=== PATIENT | female | born 1985 | race Two or more races ===

== ENCOUNTER 2017-01-05 02:01 | Emergency (ER) | payer SELFPAY ==
[~2017-01-05] VITALS: Ht 162.6 cm; Wt 73.0 kg
[~2017-01-05 02:01] MED LIST: TRAM50TA PO
[2017-01-05 02:40] LABS: BASO # 0.1 x10^3/uL (0.0-0.2); BASO % 1 % (0-3); EOS % 3 % (0-3); HEMATOCRIT 39.5 % (36.0-47.0); HEMOGLOBIN 13.1 g/dL (12.0-15.5); LYMPH # 3.3 x10^3/uL (1.0-4.8); LYMPH % 27 % (24-48); MEAN CORPUSCULAR HEMOGLOBIN 31 pg (25-35); MEAN CORPUSCULAR HGB CONC 33 g/dL (31-37); MEAN CORPUSCULAR VOLUME 94 fL (79-100); MONO % 8 % (0-9); NEUT % 62 % (31-73); PLATELET COUNT 291 x10^3/uL (140-400); RED BLOOD COUNT 4.21 x10^6/uL (3.50-5.40); WHITE BLOOD COUNT 12.5 x10^3/uL (4.0-11.0)
[2017-01-05 03:35] LABS: % EOS 5 % (0-5); PLT ESTIMATE ADEQUATE (ADEQUATE)
[2017-01-05 05:00] VITALS: BP 126/72
[2017-01-05 05:08] LABS: BILIRUBIN,URINE NEGATIVE (NEG); GLUCOSE,URINE NEGATIVE (NEG); NITRITE,URINE NEGATIVE (NEG); PROTEIN,URINE NEGATIVE (NEG-TRACE); UROBILINOGEN,URINE 0.2 mg/dL (0.2 mg/dL)
[2017-01-05 05:13] LABS: BACTERIA,URINE 0 /HPF (0-FEW); RBC,URINE OCC /HPF (0-2); SQUAMOUS EPITHELIAL CELL,UR FEW /LPF; WBC,URINE OCC /HPF (0-4)
--- NOTE | 2017-01-05 05:17 | RAD ---
OB ultrasound less than 14 weeks to include transabdominal and transvaginal imaging 01/05/2017 CLINICAL HISTORY: First trimester with pelvic pain and spotting. TECHNIQUE: Using the distended urinary bladder as a sonographic window, a real-time ultrasound examination of the pelvis was performed. Additionally in an attempt to better evaluate the uterus and adnexa, a transvaginal ultrasound study was performed. Multiple images were obtained. FINDINGS: A gestational sac is seen within the endometrial canal within the fundus of the uterus. Within this gestational sac a small yolk sac is seen. No embryonic pole is seen at this time to confirm a living IUP. The mean sac diameter is 5.8 mm. This corresponds to an estimated gestational age by ultrasound of 5 weeks 2 days plus or minus a standard deviation of 5 days. The uterus is otherwise within normal limits. The right ovary is normal in size measuring 5.4 x 3.4 x 3.2 cm in size. Within the right ovary a 2.7 cm rounded anechoic structure is seen consistent with a corpus luteum. The left ovary is normal in size and echogenicity. It measures 2.8 x 1.8 x 2.3 cm in size. No free fluid is noted. IMPRESSION: Findings are seen consistent most likely with a very early IUP as outlined above. Electronically signed by: Korey Nuñez MD (01/05/2017 5:14 AM) [facility] [place] [facility]
[2017-01-05] MEDS ORDERED: ACETAMINOPHEN 500 MG TABLET PO ONE (05:30)
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
== END 2017-01-05 05:31 | disposition home or self-care (01) ==
LOC: ER 02:01
DX: O26.891 Other specified pregnancy related conditions, first trimester (principal); R10.30 Lower abdominal pain, unspecified; M54.5 Low back pain; M54.2 Cervicalgia; V49.9XXA Car occupant (driver) (passenger) injured in unspecified traffic accident, initial encounter; Y93.89 Activity, other specified; Y92.89 Other specified places as the place of occurrence of the external cause; Y99.8 Other external cause status
CPT/HCPCS: 36415; 76801; 76817; 81001; 81025; 84702; 85007; 85027; 86900; 86901; 99285-25

== ENCOUNTER 2017-06-19 11:49 | Observation (INO) | payer OTHER ==
[~2017-06-19] VITALS: Ht 162.6 cm; Wt 98.9 kg
[2017-06-19] MEDS ORDERED: IV NORMAL SALINE 1000ML BAG 1,000 ML IV SCH (12:00)
[2017-06-19] MEDS ORDERED: 0.9 % SODIUM CHLORIDE 10 ML DISP.SYRIN. IV PRN (12:00)
[2017-06-19] MEDS ORDERED: ACETAMINOPHEN 500 MG TABLET PO ONE (12:15)
[2017-06-19] MEDS ORDERED: ACET325T9 PO (12:17)
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
[2017-06-19 12:19] LABS: BILIRUBIN,URINE NEGATIVE (NEG); GLUCOSE,URINE NEGATIVE (NEG); NITRITE,URINE NEGATIVE (NEG); PROTEIN,URINE NEGATIVE (NEG-TRACE); UROBILINOGEN,URINE 0.2 mg/dL (0.2 mg/dL)
[2017-06-19 12:22] LABS: BASO % 0 % (0-3); EOS % 3 % (0-3); HEMATOCRIT 36.6 % (36.0-47.0); HEMOGLOBIN 12.2 g/dL (12.0-15.5); LYMPH # 2.1 x10^3/uL (1.0-4.8); LYMPH % 16 % (24-48); MEAN CORPUSCULAR HEMOGLOBIN 32 pg (25-35); MEAN CORPUSCULAR HGB CONC 33 g/dL (31-37); MEAN CORPUSCULAR VOLUME 95 fL (79-100); MONO % 6 % (0-9); NEUT % 75 % (31-73); PLATELET COUNT 343 x10^3/uL (140-400); RED BLOOD COUNT 3.84 x10^6/uL (3.50-5.40); RED CELL DISTRIBUTION WIDTH 13.6 % (11.5-14.5); WHITE BLOOD COUNT 13.1 x10^3/uL (4.0-11.0)
[2017-06-19 12:27] VITALS: BP 142/74
[2017-06-19 12:30] LABS: BACTERIA,URINE MANY /HPF (0-FEW); RBC,URINE RARE /HPF (0-2); SQUAMOUS EPITHELIAL CELL,UR MANY /LPF
[2017-06-19 12:42] LABS: CREATININE 0.5 mg/dL (0.6-1.0); POTASSIUM 3.5 mmol/L (3.5-5.1)
[2017-06-19 12:47] LABS: DIRECT BILIRUBIN 0.1 mg/dL (0.0-0.2); TOTAL BILIRUBIN 0.3 mg/dL (0.2-1.0); TOTAL PROTEIN 7.6 g/dL (6.4-8.2)
[2017-06-19 15:09] LABS: % EOS 3 % (0-5); PLT ESTIMATE ADEQUATE (ADEQUATE)
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
== END 2017-06-19 16:40 | disposition home or self-care (01) ==
LOC: ER 11:49 → 3 SO LND 12:35
PROVIDERS: ADMIT Obstetrics & Gynecology; ATTEND Obstetrics & Gynecology
DX: O26.893 Other specified pregnancy related conditions, third trimester (principal); V49.9XXA Car occupant (driver) (passenger) injured in unspecified traffic accident, initial encounter; Y93.89 Activity, other specified; Y92.89 Other specified places as the place of occurrence of the external cause; Y99.8 Other external cause status; Z3A.28 28 weeks gestation of pregnancy
CPT/HCPCS: 36415; 76805; 80048; 80076; 81001; 85007; 85025; 87086; 96360; 99285; G0378; G0379; J7030

== ENCOUNTER 2018-01-18 07:49 | Emergency (ER) | payer OTHER ==
[2018-01-18 08:09] LABS: URINE HCG POC HCG POSITIVE (Negative)
[2018-01-18 08:18] LABS: BILIRUBIN,URINE NEGATIVE (NEG); CLARITY,URINE CLEAR; COLOR,URINE YELLOW; GLUCOSE,URINE NEGATIVE (NEG); NITRITE,URINE NEGATIVE (NEG); PROTEIN,URINE NEGATIVE (NEG-TRACE)
[2018-01-18 08:25] LABS: BACTERIA,URINE FEW /HPF (0-FEW); SQUAMOUS EPITHELIAL CELL,UR FEW /LPF
[2018-01-18 08:41] LABS: ADD MAN DIFF? NO
[2018-01-18 08:44] LABS: BASO % 1 % (0-3); EOS # 0.6 x10^3/uL (0.0-0.7); EOS % 6 % (0-3); HEMATOCRIT 37.2 % (36.0-47.0); HEMOGLOBIN 12.7 g/dL (12.0-15.5); LYMPH # 2.2 x10^3/uL (1.0-4.8); LYMPH % 22 % (24-48); MEAN CORPUSCULAR HEMOGLOBIN 32 pg (25-35); MEAN CORPUSCULAR HGB CONC 34 g/dL (31-37); MEAN CORPUSCULAR VOLUME 94 fL (79-100); MONO # 0.5 x10^3/uL (0.0-1.1); MONO % 6 % (0-9); NEUT # 6.4 x10^3uL (1.8-7.7); NEUT % 66 % (31-73); PLATELET COUNT 347 x10^3/uL (140-400); RED BLOOD COUNT 3.98 x10^6/uL (3.50-5.40); RED CELL DISTRIBUTION WIDTH 12.7 % (11.5-14.5); WHITE BLOOD COUNT 9.8 x10^3/uL (4.0-11.0)
[2018-01-18 08:56] LABS: ANION GAP 11 (6-14); BLOOD UREA NITROGEN 11 mg/dL (7-20); BUN/CREATININE RATIO 16 (6-20); CALCIUM 8.8 mg/dL (8.5-10.1); CARBON DIOXIDE 24 mmol/L (21-32); CHLORIDE 102 mmol/L (98-107); CREATININE 0.7 mg/dL (0.6-1.0); GLUCOSE 96 mg/dL (70-99); POTASSIUM 3.8 mmol/L (3.5-5.1); SODIUM 137 mmol/L (136-145)
[2018-01-18 09:01] LABS: ALBUMIN 3.9 g/dL (3.4-5.0); ALK PHOS 97 U/L (46-116); ALT (SGPT) 19 U/L (14-59); AST (SGOT) 14 U/L (15-37); MAGNESIUM 1.8 mg/dL (1.8-2.4); TOTAL BILIRUBIN 0.5 mg/dL (0.2-1.0); TOTAL PROTEIN 7.8 g/dL (6.4-8.2)
[2018-01-21 15:29] LABS: CHLAMYDIA PROBE Negative (Negative); GC PROBE Negative (Negative)
== END 2018-01-18 10:55 | disposition home or self-care (01) ==
LOC: ER 07:49
DX: O20.0 Threatened abortion (principal); Z3A.13 13 weeks gestation of pregnancy
CPT/HCPCS: 36415; 76801; 76817; 80053; 81001; 81025; 83735; 84702; 85025; 86900; 86901; 87086; 87491; 87591; 99285-25; Q0111

== ENCOUNTER 2018-01-19 16:53 | Emergency (ER) | payer OTHER ==
[2018-01-19] MEDS: HYDROcodone/APAP 5/325MG 1 TAB TABLET PO (19:50)
== END 2018-01-19 20:23 | disposition home or self-care (01) ==
LOC: ER 20:23
DX: O20.0 Threatened abortion (principal); Z3A.01 Less than 8 weeks gestation of pregnancy
CPT/HCPCS: 36415; 76801; 76817; 84702; 99285-25

== ENCOUNTER 2019-02-12 12:12 | Observation (INO) | payer OTHER, MEDICAID ==
[2018-01-19 16:57] VITALS: BP 142/78
[~2019-02-12 12:12] MED LIST changes: +ACET325T9 PO; +HYDR-3164 PO
[2019-02-12] MEDS ORDERED: IV RINGERS,LACTATED 1000ML 1,000 ML IV SCH (12:50)
[2019-02-12 13:03] LABS: BILIRUBIN,URINE NEGATIVE (NEG); CLARITY,URINE CLEAR; COLOR,URINE YELLOW; NITRITE,URINE NEGATIVE (NEG); PROTEIN,URINE NEGATIVE (NEG-TRACE)
[2019-02-12 13:07] LABS: BARBITURATES NEG (NEG); BENZODIAZEPINES NEG (NEG); CANNABINOIDS NEG (NEG); COCAINE NEG (NEG); METHADONE NEG (NEG); OPIATES NEG (NEG); PHENCYCLIDINE NEG (NEG)
[2019-02-12 13:09] LABS: AMPHETAMINE/METHAMPHETAMINE NEG (NEG); SQUAMOUS EPITHELIAL CELL,UR MANY /LPF
[2019-02-12 13:10] LABS: BACTERIA,URINE MODERATE /HPF (0-FEW); RBC,URINE 0 /HPF (0-2)
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
== END 2019-02-12 14:55 | disposition home or self-care (01) ==
LOC: 3 SO LND 12:12
PROVIDERS: ADMIT Obstetrics & Gynecology; ATTEND Obstetrics & Gynecology
DX: O26.892 Other specified pregnancy related conditions, second trimester (principal); R10.30 Lower abdominal pain, unspecified; Z3A.23 23 weeks gestation of pregnancy
CPT/HCPCS: 76805; 80307; 81001; 87086; G0378; G0379

== ENCOUNTER 2020-12-24 05:04 | Emergency (ER) | payer MEDICAID, OTHER ==
[~2020-12-24] VITALS: Ht 162.6 cm; Wt 100.0 kg
[2020-12-24] MEDS ORDERED: LABETALOL 20 MG/4 ML DISP.SYRIN. IVP ONE ×2 (06:15→07:30)
[2020-12-24] MEDS ORDERED: IV NORMAL SALINE 1000ML BAG 1,000 ML IV ONE (06:15)
[2020-12-24 06:30] LABS: BILIRUBIN,URINE NEGATIVE (NEG); CLARITY,URINE CLEAR; COLOR,URINE YELLOW; NITRITE,URINE NEGATIVE (NEG); PH,URINE 6.5 (<5.0-8.0); PROTEIN,URINE 30 mg/dL (NEG-TRACE)
[2020-12-24 06:32] LABS: CALCIUM 8.9 mg/dL (8.5-10.1); CREATININE 0.7 mg/dL (0.6-1.0); GFR 95.2; POTASSIUM 3.6 mmol/L (3.5-5.1)
[2020-12-24 06:37] LABS: ALBUMIN 3.3 g/dL (3.4-5.0); ALBUMIN/GLOBULIN RATIO 0.8 (1.0-1.7); TOTAL BILIRUBIN 0.6 mg/dL (0.2-1.0); TOTAL PROTEIN 7.5 g/dL (6.4-8.2)
[2020-12-24 06:42] LABS: BASO % 0 % (0-3); EOS # 0.1 x10^3/uL (0.0-0.7); EOS % 1 % (0-3); HEMATOCRIT 39.5 % (36.0-47.0); HEMOGLOBIN 13.1 g/dL (12.0-15.5); LYMPH # 1.8 x10^3/uL (1.0-4.8); LYMPH % 18 % (24-48); MEAN CORPUSCULAR HEMOGLOBIN 31 pg (25-35); MEAN CORPUSCULAR HGB CONC 33 g/dL (31-37); MEAN CORPUSCULAR VOLUME 93 fL (79-100); MONO # 0.4 x10^3/uL (0.0-1.1); MONO % 5 % (0-9); NEUT # 7.3 x10^3/uL (1.8-7.7); NEUT % 76 % (31-73); PLATELET COUNT 363 x10^3/uL (140-400); RED BLOOD COUNT 4.26 x10^6/uL (3.50-5.40); RED CELL DISTRIBUTION WIDTH 14.6 % (11.5-14.5); WHITE BLOOD COUNT 9.7 x10^3/uL (4.0-11.0)
[2020-12-24] MEDS ORDERED: IOHEXOL 300 MG/ML 100ML VIAL. IV ONE (06:45)
[2020-12-24] MEDS ORDERED: CONTRAST GIVEN. MC PRN (06:45)
[2020-12-24 06:49] LABS: BACTERIA,URINE FEW /HPF (0-FEW); WBC,URINE OCC /HPF (0-4)
--- NOTE | 2020-12-24 06:52 | PHYS DOC ---
Past Medical History Past Medical History: No Pertinent History Past Surgical History: Other Additional Past Surgical Histo: breast augmentation Smoking Status: Former Smoker Alcohol Use: None Drug Use: None General Adult EDM: Chief Complaint: MULTIPLE COMPLAINTS HPI: HPI: Pt was seen and orders were placed by overnight doctor RAFFI HAAS DO. I came on shift at 6AM. 35-year-old female presenting the emergency department today with a abdominal pain nausea. She reports feeling a bubbling sensation in her abdomen and chest. This all started around 4:00 this morning. She felt lightheaded short of breath and had an episode where she felt like she could not move her body and felt tingling in her hands. She reports falling at that time but did not pass o ut. Since then she is much improved and feeling much better. She was treated for hypertension in which started around 16 weeks of . She gave 1 week ago by vaginal delivery at [facility]. Review of systems is negative for vomiting diaphoresis fevers chills. All other review of systems negative. Heart Score: C/O Chest Pain: No Risk Factors: Risk Factors: DM, Current or recent (<one month) smoker, HTN, HLP, family history of CAD, obesity. Risk Scores: Score 0 - 3: 2.5% MACE over next 6 weeks - Discharge Home Score 4 - 6: 20.3% MACE over next 6 weeks - Admit for Clinical Observation Score 7 - 10: 72.7% MACE over next 6 weeks - Early Invasive Strategies Current Medications: Current Medications Medications (Trade) Dose Ordered Sig/Chato Start Time Stop Time Status Last Admin Dose Admin Labetalol HCl (Normodyne Iv Push) 10 mg 1X ONCE 12/24/20 06:15 12/24/20 06:16 DC 12/24/20 06:23 10 MG Sodium Chloride 1,000 ml @ 1,000 mls/hr 1X ONCE 12/24/20 06:15 12/24/20 07:14 12/24/20 06:23 1,000 MLS/HR Allergies: Allergies: Allergies Coded Allergies Type Severity Reaction Last Updated Verified No Known Drug Allergies 04/25/16 No Physical Exam: PE: Constitutional: Well developed, well nourished, no acute distress, non-toxic appearance. [] HENT: Normocephalic, atraumatic, bilateral external ears normal, oropharynx moist, no oral exudates, nose normal. [] No nuchal rigidity. Eyes: PERRLA, EOMI, conjunctiva normal, no discharge. [] Neck: Normal range of motion, no tenderness, supple, no stridor. [] Cardiovascular:Heart rate regular rhythm, no murmur [] Lungs & Thorax: Bilateral breath sounds clear to auscultation [] Abdomen: Bowel sounds normal, soft, no tenderness, no masses, no pulsatile masses. No rebound tenderness or guarding. Skin: Warm, dry, no erythema, no rash. [] Back: No tenderness, no CVA tenderness. [] Extremities: No tenderness, no cyanosis, no clubbing, ROM intact, no edema. [] Neurologic: Alert and oriented X 3, normal motor function, normal sensory function, no focal deficits noted. [] Psychologic: Affect normal, judgement normal, mood normal. [] Current Patient Data: Labs: Laboratory Tests Test 12/24/20 06:07 12/24/20 06:11 Sodium Level 143 mmol/L (136-145) Potassium Level 3.6 mmol/L (3.5-5.1) Chloride Level 104 mmol/L (98-107) Carbon Dioxide Level 24 mmol/L (21-32) Anion Gap 15 (6-14) H Blood Urea Nitrogen 11 mg/dL (7-20) Creatinine 0.7 mg/dL (0.6-1.0) Estimated GFR (Cockcroft-Gault) 95.2 BUN/Creatinine Ratio 16 (6-20) Glucose Level 104 mg/dL (70-99) H Calcium Level 8.9 mg/dL (8.5-10.1) Total Bilirubin 0.6 mg/dL (0.2-1.0) Aspartate Amino Transferase (AST) 35 U/L (15-37) Alanine Aminotransferase (ALT) 61 U/L (14-59) H Alkaline Phosphatase 120 U/L (46-116) H Total Protein 7.5 g/dL (6.4-8.2) Albumin 3.3 g/dL (3.4-5.0) L Albumin/Globulin Ratio 0.8 (1.0-1.7) L POC Urine HCG, Qualitative Borderline hcg level Laboratory Tests 12/24/20 06:07 Vital Signs: Vital Signs Date Time Temp Pulse Resp B/P (MAP) Pulse Ox O2 Delivery O2 Flow Rate FiO2 12/24/20 06:23 70 181/115 EKG: EKG: [] EKG shows sinus rhythm with a regular rate. ST segments congruent. Not suggestive of acute ischemia. Radiology/Procedures: Radiology/Procedures: [] Course & Med Decision Making: Course & Med Decision Making Pertinent Labs and Imaging studies reviewed. (See chart for details) 35-year-old female who presents with chest and abdominal pain with tingling in her hands and an episode of time where she reports not being able to move her body. On arrival EKG was performed. On arrival the patient is hypertensive at 183/123. Patient was given IV labetalol and IV hydralazine. Improvement in diastolic blood pressure. Systolic pressure remains elevated. EKG initially reviewed by oncoming doctor at 536 and then I reviewed at around 6:52 AM. EKG shows a sinus rhythm with a regular rate. ST segments are congruent. Not suggestive of acute ischemia. IV established and blood work sent. Head CT performed which was unremarkable. CBC unremarkable. Chemistry panel shows a minimal elevation in ALT and alk phos. Troponin of 1.56. Urine analysis shows 30 protein. Positive for blood. Leuk esterase trace. Few bacteria. CT angiog marissa shows no aortic aneurysm dissection or pulmonary embolism. There is a multifocal tree-in-bud nodular opacity concerning for infectious process. IV antibiotics ordered. I paged Dr. Orozco the patient's OB at [facility] at [phone]. Dr. Betancourt called us back at [phone]. I reviewed the case with her. She accepts the patient for transfer for admission to [facility]. I also spoke with Dr. Cerda about the patient. He agrees with care. Time is now 11:39 AM. We have an accepting doctor however we are not successfully able to find transportation at this time. We have called and are working on getting transport. Transport was able to be obtained and the patient was transported to [facility] for further treatment and care. [place] Disclaimer: Dragon Disclaimer: This electronic medical record was generated, in whole or in part, using a voice recognition dictation system. Departure Departure Impression: Primary Impression: Elevated troponin Additional Impressions: Abdominal pain Chest pain hypertension Disposition: 02 SHORT TERM HOSPITAL Condition: GUARDED Referrals: NEIL KOCH MD (PCP) GEORGE TEJEDA MD Dec 24, 2020 06:52
--- NOTE | 2020-12-24 07:07 | RAD ---
EXAMINATION: CT head without IV contrast INDICATION:35 years, Female, weakness and numbness. COMPARISON: None TECHNIQUE: Spiral acquisition of contiguous images from the skull base to the vertex were obtained. S agittal and coronal 2D reformatted series were provided by the technologist. Soft tissue and bone win sushil algorithms were reviewed. Exposure: One or more of the following individualized dose reduction techniques were utilized for thi s examination: 1. Automated exposure control 2. Adjustment of the mA and/or kV according to patient size 3. Use of iterative reconstruction technique. FINDINGS: Neither mass, midline shift, intracranial hemorrhage, acute/subacute ischemic changes, nor extraaxial fluid collections are seen. The brain parenchyma is normal in appearance. The ventricles are normal in size. Left worst than right, mucosal thickening in the ethmoid air cells. The remaining visualized paranasa l sinuses, mastoid air cells, and middle ears are clear. The orbital contents appear within normal limits. IMPRESSION: No evidence of acute intracranial abnormality. Electronically signed by: Komal Lares MD (12/24/2020 7:04 AM) [facility]
[2020-12-24] MEDS ORDERED: IOHEXOL 350 MG/ML 100 ML VIAL. IV ONE (07:15)
--- NOTE | 2020-12-24 07:53 | RAD ---
CTA CHEST History: Reason: SYNCOPE, HIGH TROPONIN r/o PE / Spl. Instructions: OMNI 350 INJ. 100 MLS / History: Comparison: None. Technique: CTA of the pulmonary arteries with intravenous contrast. Sagittal and coronal 3-D maximum intensity projection reformats were provided. . No exercise-induced stool in the Findings: Pulmonary arteries: No pulmonary embolism. Aorta and great vessels: No aneurysm of the aortic arch or thoracic aorta is seen. Thyroid: No significant abnormalities. Mediastinum and vangie: No mediastinal masses or adenopathy is seen. Prominent right anterior mediastin al fat pad versus lipoma measuring approximately 7.5 x 5.3 cm. Esophagus: The visualized esophagus is normal. Heart: The heart is normal in size. There is no pericardial effusion. Airways: The visualized tracheobronchial tree is normal. Lungs: Left upper lobe tree-in-bud nodular opacities to lesser extent involving the right upper lobe and left lower lobe. A more discrete nodules present near the left apex measuring 6 mm short axis (ax ial image 25). Pleural space: There is no pneumothorax or pleural effusion. Upper abdomen: Limited evaluation of the upper abdomen is unremarkable. Osseous structures and soft tissues: Bilateral breast implants. No acute osseous abnormality. Impression: 1. No aortic aneurysm, aortic dissection or pulmonary embolism. 2. Multifocal tree-in-bud nodular opacities most prominent in the left upper lobe concerning for inf ectious process. Recommend repeat CT in 3 months following appropriate course of treatment to evaluat e for resolution. ------ Exposure: One or more of the following individualized dose reduction techniques were utilized for thi s examination: 1. Automated exposure control 2. Adjustment of the mA and/or kV according to patient size 3. Use of iterative reconstruction technique. Electronically signed by: Hilario Latif MD (12/24/2020 7:51 AM) [id number]
[2020-12-24] MEDS ORDERED: hydrALAZINE 20 MG/ML VIAL. IVP ONE ×3 (08:15→09:45)
[2020-12-24] MEDS: MORPHINE SULFATE 2 MG/ML VIAL. IV PRN ×2 (08:18→10:58)
[2020-12-24] MEDS ORDERED: cefTRIAXone IV Push 1 GM VIAL. IVP ONE (08:30)
[2020-12-24] MEDS ORDERED: AZITHRMYCN 500MG IVPB FOR OMNI 250 ML IV ONE (08:30)
[2020-12-24] MEDS ORDERED: ONDANSETRON PF 4 MG/2 ML VIAL. ONE (10:05)
[2020-12-24] MEDS ORDERED: ONDANSETRON PF 4 MG/2 ML VIAL. IVP ONE (10:15)
[2020-12-24 11:50] VITALS: BP 186/102
--- NOTE | 2020-12-24 16:50 | EKG ---
[facility] [address] [place] [address] Test Date: 2020-12-24 Test Time: 05:33:22 Pat Name: JOHNSON CHRISTIE Department: Room: Gender: F Second Worker: : 1985 Requested By: ALDEN BAILEY Order Number: [id number] Reading MD: Measurements Intervals [place] Rate: 77 P: 28 SD: 152 QRS: 64 QRSD: 90 T: 47 QT: 346 QTc: 393 Interpretive Statements SINUS RHYTHM NO SPECIFIC ECG ABNORMALITIES RI6.01 No previous ECG available for comparison
== END 2020-12-24 12:06 | disposition short-term general hospital (02) ==
LOC: ER 05:04
DX: O16.5 Unspecified maternal hypertension, complicating the puerperium (principal); R77.8 Other specified abnormalities of plasma proteins; R10.9 Unspecified abdominal pain; R07.9 Chest pain, unspecified; Z98.890 Other specified postprocedural states
CPT/HCPCS: 36415; 70450; 71275; 80053; 81001; 81025; 83880; 84484; 85025; 87086; 93005; 96361; 96365; 96366; 96375; 96376; 99285; J0360; J0456; J0696; J2270; J2405; J3490; J7030; Q9967

== ENCOUNTER 2021-07-17 11:39 | Emergency (ER) | payer MEDICAID ==
[~2021-07-17] VITALS: Ht 162.6 cm; Wt 88.8 kg
[2021-07-17 11:40] VITALS: BP 145/85
--- NOTE | 2021-07-17 11:55 | ED.ADGEN ---
Past Medical History Past Medical History: Hypertension, Other Additional Past Medical Histor: INDUCED HYPERTENSION Past Surgical History: Other Additional Past Surgical Histo: breast augmentation Smoking Status: Former Smoker Alcohol Use: None Drug Use: None General Adult EDM: Chief Complaint: KNEE INJURY HPI: HPI: Patient is a 36 year old female coming in for left knee pain and swelling. Patient states that 2 days ago she was dancing when she felt like her knee "slid on the bones". Did not feel a pop. Patient able to ambulate with pain. No injury proximal or distal. Review of Systems: Review of Systems: All other systems within normal limits except for as noted in the HPI Allergies: Allergies: Allergies Coded Allergies Type Severity Reaction Last Updated Verified No Known Drug Allergies 07/17/21 No Physical Exam: PE: Constitutional: Well developed, well nourished, no acute distress, non-toxic appearance. [] HENT: Normocephalic, atraumatic, bilateral external ears normal, nose normal. [] Eyes: PERRLA, conjunctiva normal, no discharge. [] Neck: No rigidity, supple, no stridor. [] Cardiovascular: Regular rate and rhythm, brisk cap refill [] Lungs & Thorax: Non labored symmetric respirations, no tachypnea or respiratory distress [] Abdomen: Soft, nondistended. Skin: Warm, dry, no erythema, no rash. [] Back: Unremarkable Extremities: No deformities, range of motion grossly intact, no lower extremity edema. Left knee exam: Joint effusion, tenderness over medial aspect, patient able to flex and extend knee but range of motion limited due to pain and swelling. Neurologic: Alert and oriented X 3, no focal deficits noted. [] Psychologic: Affect normal, judgement normal, mood normal. [] Current Patient Data: Vital Signs: Vital Signs Date Time Temp Pulse Resp B/P (MAP) Pulse Ox O2 Delivery O2 Flow Rate FiO2 07/17/21 11:40 98.1 93 16 145/85 (105) 100 Room Air 98.1 EKG: EKG: [] Heart Score: C/O Chest Pain: No Risk Factors: Risk Factors: DM, Current or recent (<one month) smoker, HTN, HLP, family history of CAD, obesity. Risk Scores: Score 0 - 3: 2.5% MACE over next 6 weeks - Discharge Home Score 4 - 6: 20.3% MACE over next 6 weeks - Admit for Clinical Observation Score 7 - 10: 72.7% MACE over next 6 weeks - Early Invasive Strategies Radiology/Procedures: Radiology/Procedures: [facility] [address] [place] [address] IMAGING REPORT Signed PATIENT: ANTONIO MARTINEZ BACCOUNT: [id number] : 09/17/1938 LOCATION: ER AGE: 82 SEX: M EXAM STATUS: REG ER ORD. PHYSICIAN: MALINDA LARES MD REASON: constipation PROCEDURE: KUB PROCEDURE: AP abdomen 07/17/2021 11:46 AM. REASON FOR STUDY: Reason: constipation / Spl. Instructions: / History: . COMPARISON: None. FINDINGS: Gas is seen in a mixture of large and small bowel. There is no evidence of obstruction. No abnormal masses or gas collections are shown. A large amount of stools present in the colon. 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 There is a vena cava filter to the right of the lumbar spine.. IMPRESSION: No evidence of obstruction. Large amount of colonic stool.. Electronically signed by: Liset Roberson Jr., MD (07/17/2021 11:47 AM) [facility] DICTATED and SIGNED BY: LISET ROBERSON Jr, MD DATE: 07/17/21 [id number] [] Course & Med Decision Making: Course & Med Decision Making Pertinent Labs and Imaging studies reviewed. (See chart for details) [] Dragon Disclaimer: Leana Disclaimer: This electronic medical record was generated, in whole or in part, using a voice recognition dictation system. Departure Departure Impression: Primary Impression: Left knee injury Disposition: HOME / SELF CARE / HOMELESS Condition: STABLE Referrals: HALLIE HEATON Jr. DO Patient Instructions: RICE - Routine Care for Injuries Additional Instructions: Continue using the hinged knee brace until cleared by orthopedics. MALINDA LARES MD Jul 17, 2021 11:55
--- NOTE | 2021-07-17 12:12 | RAD ---
Exam Date: 07/17/2021 11:54 AM XR KNEE _3 VIEWS_LT Indication: Reason: pain, swelling / Spl. Instructions: / History: . FINDINGS/ IMPRESSION: No acute fracture or dislocation. Alignment and joint spaces are maintained. There is a joint effus ion. Electronically signed by: Edward Zuñiga MD (07/17/2021 12:09 PM) [facility]
== END 2021-07-17 12:50 | disposition home or self-care (01) ==
LOC: ER 11:39
DX: S89.92XA Unspecified injury of left lower leg, initial encounter (principal); X58.XXXA Exposure to other specified factors, initial encounter; Y93.41 Activity, dancing; Y92.89 Other specified places as the place of occurrence of the external cause; Y99.8 Other external cause status
CPT/HCPCS: 73562; 99283

== ENCOUNTER → 2021-08-04 | Outpatient (CLI) | payer MEDICAID ==
[2021-07-17 11:40] VITALS: BP 145/85
--- NOTE | 2021-08-04 09:30 | KCIC ---
MRI STUDY OF THE LEFT KNEE WITHOUT CONTRAST Clinical indications: Left knee injury 1 month ago. [place] a sharp pain in left knee during dancing. Pa in is located medially and posteriorly. TECHNIQUE: Noncontrast MRI sequences of the left knee were performed in all 3 planes. FINDINGS: The posterior cruciate ligament is intact. The anterior cruciate ligament is torn at the fe moral insertion. There is associated pivot shift bone marrow contusions of the posterior aspect of th e medial and lateral tibial plateaus and deep to the tibial spines and the lateral femoral condyle an d medial femoral condyle. With regard to the lateral femoral condyle, there is a subcortical linear f ocus of increased signal consistent with a fracture which is nondisplaced. Overlying cortex and artic ular cartilage are intact. The quadriceps and patellar tendons are intact. No articular surface tear of the medial or lateral meniscus is seen. The medial collateral ligament is intact and no meniscocap sular separation is seen. The lateral collateral ligament complex and iliotibial band and popliteus t endon are intact. No posterior lateral corner injury is evident. The patella is normally aligned. The re is mild chondromalacia of patellae of the lateral patellar facet with signal abnormality but no ar ticular cartilage defect or linear fissure is apparent. No focal osteochondral abnormality of the tro chlea is seen. The medial and lateral retinacular ligaments are intact. No Kong's cyst is seen. Ther e is a small knee joint effusion. No loose body is apparent. No muscle edema is seen. IMPRESSION: ACL tear with associated pivot shift bone marrow contusions of the proximal tibia and dis kayley femur. There is a nondisplaced subcortical fracture of the lateral femoral condyle. Overlying art icular cartilage and cortex are intact. No meniscal tear. Electronically signed by: Avila Gates MD (08/04/2021 9:28 AM) [id number]
== END ==
LOC: KCIC MRI 08:00
PROVIDERS: ATTEND Physician Assistant
DX: S83.512A Sprain of anterior cruciate ligament of left knee, initial encounter (principal); S72.425A Nondisplaced fracture of lateral condyle of left femur, initial encounter for closed fracture; S80.12XA Contusion of left lower leg, initial encounter; M25.462 Effusion, left knee; X58.XXXA Exposure to other specified factors, initial encounter; Y93.89 Activity, other specified; Y92.89 Other specified places as the place of occurrence of the external cause; Y99.8 Other external cause status
CPT/HCPCS: 73721

== ENCOUNTER → 2021-10-20 | Outpatient (CLI) | payer MEDICAID ==
[~2021-10-20] MED LIST changes: +ASPI325T8 PO; +DOCU-109 PO; +ONDA4TAB12 PO; +OXYC5TAB4 PO
== END ==
LOC: LAB 09:57
PROVIDERS: ATTEND Orthopaedic Surgery
DX: Z01.812 Encounter for preprocedural laboratory examination (principal); Z20.822 Contact with and (suspected) exposure to COVID-19
CPT/HCPCS: U0003

== ENCOUNTER 2021-10-24 07:25 | Day surgery (SDC) | payer MEDICAID ==
[~2021-10-24] VITALS: Ht 157.5 cm; Wt 86.0 kg
[~2021-10-24 07:25] MED LIST changes: -ASPI325T8 PO; -DOCU-109 PO; +HYDROmorphone 2 MG/ML INJ. IVP PRN; +IV RINGERS,LACTATED 1000ML 1,000 ML IV SCH; +MORPHINE SULFATE 2 MG/ML INJ. IVP PRN; -ONDA4TAB12 PO; -OXYC5TAB4 PO; +PROCHLORPERAZINE 10 MG/2 ML VIAL. IVP PRN; +fentaNYL PF VIAL 100 MCG/2 ML VIAL IVP PRN
[2021-10-24] MEDS ORDERED: ROPIVacaine 0.2% PF 10 ML VIAL. IJ ONE (07:30)
[2021-10-24] MEDS ORDERED: LIDOCAINE 2% PF 5 ML VIAL. ONE ×2 (07:32→08:19)
[2021-10-24] MEDS ORDERED: MIDAZOLAM HCL/PF 2 MG/2 ML VIAL. ONE ×2 (07:32→09:14)
[2021-10-24] MEDS ORDERED: BUPIVACAINE-EPI 0.25%-1:200000 MPF 30 ML VIAL. ONE (07:33)
[2021-10-24] MEDS ORDERED: DEXAMETHASONE SOD PHOS 4 MG/ML VIAL ONE ×2 (07:33→08:19)
[2021-10-24 07:43] VITALS: BP 147/95
[2021-10-24] MEDS ORDERED: ONDANSETRON PF 4 MG/2 ML VIAL. ONE (08:19)
[2021-10-24] MEDS ORDERED: KETOROLAC 30 MG/ML VIAL. ONE (08:19)
[2021-10-24] MEDS ORDERED: fentaNYL PF VIAL 100 MCG/2 ML VIAL ONE ×2 (08:19→11:02)
[2021-10-24] MEDS ORDERED: PROPOFOL 10 MG/ML (20ML) VIAL. IV ONE (08:19)
--- NOTE | 2021-10-24 09:21 | PDOC4 ---
OPERATIVE NOTE Date: Date: Oct 24, 2021 Pre-Op Diagnosis: 1. 36-year-old female left knee acute ACL tear Post-Op Diagnosis: Same Procedure Performed: 1. Left knee ACL reconstruction utilizing 9.0mm Arthrex Graftlink allograft Surgeon: Boo Anesthesia Type: General Blood Loss: 20 cc Specimans Obtained: None Complications: Patient tolerated procedure well without any apparent complications. Operative Note: See dictation CAMMIE CLINE Oct 24, 2021 09:21
[2021-10-24] MEDS ORDERED: ASPI325T8 PO (10:37)
[2021-10-24] MEDS ORDERED: ONDA4TAB12 PO (10:37)
[2021-10-24] MEDS ORDERED: DOCU-109 PO (10:37)
[2021-10-24] MEDS ORDERED: OXYC5TAB4 PO (10:39)
--- NOTE | 2021-10-24 10:43 | DISCH ---
DISCHARGE INSTRUCTIONS Condition on Discharge Condition on Discharge: Stable Activity After Discharge Activity Instructions for Disc: Activity as tolerated, Avoid high altitudes, Progressive ambulation Other activity instructions: Weightbearing as tolerated left lower extremity. Remain in brace all times. Bathing Instructions: Shower-keep dressing dry Lifting Instructions after Dis: No heavy lifting, Add. restrict see below (Weightbearing as tolerated left lower extremity. Knee brace at all times left lower extremity. Okay to range knee from 0 to 90 degrees in brace.) Exercise Instruction after Dis: Walk 10 min, 3 x per day Driving Instructions after Dis: Do not drive today Weight Bearing Status after Di: Full weight bearing Diet after Discharge Diet after Discharge: Regular Wound Incision Care Wound/Incision Care: Ice to area for comfort, Keep wound elevated, Do not change dressing Wound Care Equipment: Dressings (Keep surgical dressing clean dry and intact. Do not allow to get wet under any circumstances. Wrap with Saran wrap when performing daily hygiene. In the event that the dressings become wet and are grossly contaminated they should be removed and changed immediately. Keep your incision covered at all times with dry gauze and an Naseem wrap. Sutures to be removed at your first postoperative follow-up appointment.) Community/Resources/Services Services at Discharge: Outpatient Therapy Contacting the DRShadia after DC Call your doctor for: Fever greater than 100 Follow-Up Follow up with: 2 to 3 weeks call to make appointment [phone] Treatment/Equipment after DC Adaptive Equipment Issued: None CAMMIE CLINE Oct 24, 2021 10:43
--- NOTE | 2021-10-24 10:50 | HP ---
DATE OF SERVICE: 10/24/2021 ADMIT DATE: 10/24/2021 PREOPERATIVE HISTORY AND PHYSICAL CHIEF COMPLAINT: Left knee pain and instability. BRIEF HISTORY: The patient was salsa dancing back in June of this last year when she felt a popping type of sensation. After that, she was unable to stand for the length of time and after that she attended physical therapy, which did improve as far as some of the range of motion, but did not improve her instability complaints. She continued to have swelling and pain associated with that knee with activities. Activities of daily living have become difficult secondary to the ongoing pain and instability. PAST MEDICAL HISTORY: Unremarkable. PAST SURGICAL HISTORY: Unremarkable. MEDICATIONS: None. ALLERGIES: No known drug allergies. SOCIAL HISTORY: The patient does currently use tobacco, approximately 6-10 cigarettes per day. No alcohol use other than the weekends only. FAMILY HISTORY: Unremarkable. PHYSICAL EXAMINATION: VITAL SIGNS: She is 62 inches tall, 190 pounds. She has vital signs are stable today. GENERAL: She is alert and oriented x 3. LUNGS: Clear to auscultation in all russell. HEART: Regular rate and rhythm with examination. ABDOMEN: Soft and nontender. EXTREMITIES: The knee is noting a moderate knee joint effusion today with instability in the anterior plane. She is unstable throughout the arc of motion, but Monica's testing is definitely positive at this point. There is no instability; however, in the varus, valgus plane. There is no atrophy of musculature, left versus right. Distal neurovascular status appears to be fully intact with range of motion 0-120 degrees of flexion today. IMAGING: MRI was reviewed and is available, does show what appears to be some bone marrow edema, especially along the area of the proximal tibia and distal femur. ACL appears torn at this point. IMPRESSION: ACL tear with instability, left knee. PLAN: At this time, I have talked with her again with her daughter present. We have gone over the risks, complications as well as benefits and expectations of surgery, postoperative protocol and followup. We will proceed as soon as she sees anesthesia this morning and they plan on doing a block for this knee. HEAVENLY/EULALIO/TEENA DR: Iwona TID: [id number]
[2021-10-24] MEDS: fentaNYL PF VIAL 100 MCG/2 ML VIAL IVP PRN ×2 (11:03→11:16)
[2021-10-24] MEDS ORDERED: oxyCODONE IR 5 MG TABLET ONE (11:21)
[2021-10-24 11:35] VITALS: BP 162/96
--- NOTE | 2021-10-24 13:22 | OP ---
DATE OF SURGERY: 10/24/2021 PREOPERATIVE DIAGNOSIS: Anterior cruciate ligament tear, left knee. POSTOPERATIVE DIAGNOSIS: Anterior cruciate ligament tear, left knee. PROCEDURE: Left knee arthroscopy with ACL reconstruction, allograft. SURGEON: Elie Haddad Jr, DO STORE CASHIER: EYAL Mary ANESTHESIA: General. COMPLICATIONS: None. ESTIMATED BLOOD LOSS: 30 mL. DESCRIPTION OF PROCEDURE: The patient was taken to the operative suite, given a general anesthetic. Left lower extremity was placed in a knee woody, prepped and draped in a sterile fashion. Inferomedial and inferolateral portals were established. Knee was insufflated with saline. Visualization of the patellofemoral joint noted this to be intact and tracking appropriately. There was no chondral damage of significance at this point. The medial and lateral gutters did not have any significant abnormalities. There were no loose bodies within that area. Scope was then taken into the medial compartment, which looked completely intact without any lesions, abnormalities, etc. The probing of the meniscus noted this to be completely intact and stable with no tears at this point. There was a complete ACL tear, which had scarred down to the PCL. The PCL itself was intact and upon entering the lateral compartment, there were no significant abnormalities or problems at that point and visually, this was completely intact. Throughout the arc of motion of the femur, there was no chondral damage. No chondral damage to the tibial surface as well. The probing of the meniscus revealed this to be very stable without any tearing at this point. Therefore, the graft was then prepared on the back table. The graft was noted to be a size 9; therefore, after the tissue was removed, especially from the area of the lateral condyle of the femur along the medial aspect of this upon entering the intercondylar region, this was completely cleared out of soft tissue. Then, the guide was placed into appropriate position on the femur for the femoral tunnel and a small stab incision was made through skin and subcutaneous tissues and the IT band and the guide was then placed all the way down to the lateral aspect of the femur. The guide pin was then placed through followed by the FlipCutter, which was placed within the intraarticular portion of the knee. This was measured to be a 9 mm size tunnel; therefore, the 9 mm was dialed in and this was retrodrilled for 30 mm. This was brought back out into the intercondylar region and flipped it back. The debris was then cleared from the area using a shaver. The FlipCutter was then removed and through the lateral guide, the TigerWire was then placed and grasped intraarticularly and pulled out the lateral portal. This was noted to be in good position. The tunnel was in good femoral position. Attention was then directed to the tibia. The tibial guide was then placed in the appropriate position on the original insertion site for the ACL. This was noted to be just slightly posterior than the anterior rim of the anterior horn of the medial meniscus. This was in good position and orientation again in the original anterior cruciate ligament site, therefore, a small stab incision was extended approximately 2.5-3 cm through skin and subcutaneous tissues down to the tibia along the medial crest. The guide was then placed down to the bone and held appropriately. The drill guide pin was then placed through this guide up into the intra-articular portion. This did grasp and secure to the drill guide. The screw was then attached to the end of the drill pin and this was retrodrilled. The retrodrill was taken throughout to a complete tibial tunnel. This was also cleared with a shaver following this and then the passing suture was then grasped and pulled through the tibial tunnel. The graft, which had been under tension for the entire time, the tunnels were being prepared, was then taken off the back table. The button was then placed through using the guide suture. This was placed through the tibial tunnel up into the femoral tunnel and this was noted to be secured up into the femoral tunnel and out along the lateral femur. This was noted to be secured and followed through with the scope. After this was visualized being deployed, this was then flipped and then noted to be very secured on the lateral femur. Using the appropriate sutures, this was able to be pulled through the tibial and subsequently the femoral tunnels as far as the graft is concerned. The graft was taken to its endpoint into the tunnel and noted to be extremely secured and tight. Distally, the loop was then placed around the securing washer. Then, using appropriate technique, this was tightened down appropriately. This was noted to be a very tight ACL graft, which is in excellent position and orientation. This was double checked on the femoral and tibial sides for security and again was noted to be very secure and stable. Therefore, the sutures were then tied and then cut. This was taken through range of motion throughout and noted to be very stable. The incisions were then reapproximated. Superficial tissue and skin was reapproximated. Sterile dressing was applied. Tourniquet was deflated with good return of pulses and capillary refill with no excessive bleeding. The patient was then taken from the operative bed to the postoperative bed, taken to the PACU in stable condition. TIMOTHY/TEENA DR: Iwona TID: [id number]
== END 2021-10-24 11:47 | disposition home or self-care (01) ==
LOC: SURG 07:25
PROVIDERS: ATTEND Orthopaedic Surgery
DX: S83.512A Sprain of anterior cruciate ligament of left knee, initial encounter (principal); M25.362 Other instability, left knee; F17.210 Nicotine dependence, cigarettes, uncomplicated; Z79.82 Long term (current) use of aspirin; Z79.899 Other long term (current) drug therapy; Z98.890 Other specified postprocedural states; X58.XXXA Exposure to other specified factors, initial encounter; Y93.89 Activity, other specified; Y92.89 Other specified places as the place of occurrence of the external cause; Y99.8 Other external cause status
CPT/HCPCS: 29888; 81025; A4930; C1713; J0690; J1100; J1885; J2250; J2405; J2704; J2795; J3010; J3490; A4223; A6454